=== PATIENT | female | born 1990 | race Caucasian/White ===

== ENCOUNTER 2016-11-27 22:09 | Emergency (ER) ==
[2016-11-27 22:21] VITALS: BP 118/72
== END 2016-11-27 23:48 | disposition left against medical advice (07) ==
LOC: ER 22:09
DX: Z53.21 Procedure and treatment not carried out due to patient leaving prior to being seen by health care provider (principal)

== ENCOUNTER 2017-02-03 19:28 | Emergency (ER) | payer MEDICAID ==
--- NOTE | 2017-02-03 21:03 | ER Document Report ---
ED Medical Screen (RME) - General Chief Complaint: Vaginal Discharge Stated Complaint: LOWER ABDOMINAL PAIN Time Seen by Provider: 02/03/17 21:00 Mode of Arrival: Ambulatory Information source: Patient Notes: Pt is a 26 year old female who presents to the ER today for left lower abdominal pain with "a lot" of vaginal discharge over the past week. She denies . She denies fever/dysuria. - Related Data Allergies/Adverse Reactions: No Known Allergies Allergy (Unverified 02/03/17 20:20) Past Medical History - General Information source: Patient Last Menstrual Period: 24 January Renal/ Medical History: Denies: Hx Peritoneal Dialysis Review of Systems - Review of Systems Female Genitourinary: See HPI Physical Exam - Vital signs Vitals: Temp Pulse Resp BP Pulse Ox 98.0 F 79 14 103/62 99 02/03/17 20:21 02/03/17 20:21 02/03/17 20:21 02/03/17 20:21 02/03/17 20:21 - Notes Notes: PHYSICAL EXAMINATION: GENERAL: Appears uncomfortable, but in no acute distress. ABDOMEN: Soft, suprapubic, left lower quadrant tenderness. No guarding, no rebound Course - Vital Signs Vital signs: Temp Pulse Resp BP Pulse Ox 98.0 F 79 14 103/62 99 02/03/17 20:21 02/03/17 20:21 02/03/17 20:21 02/03/17 20:21 02/03/17 20:21
[2017-02-03 21:33] LABS: AMORPHOUS SEDIMENT,URINE TRACE /HPF; APPEARANCE,URINE CLOUDY; BILIRUBIN,URINE NEGATIVE (NEGATIVE); GLUCOSE, URINE NEGATIVE (NEGATIVE); KETONES,URINE NEGATIVE (NEGATIVE); LEUKOCYTE ESTERASE,URINE TRACE (NEGATIVE); NITRITE,URINE NEGATIVE (NEGATIVE); PROTEIN,URINE NEGATIVE (NEGATIVE); URINE SPECIFIC GRAVITY 1.012; UROBILINOGEN,URINE NEGATIVE mg/dL (<2.0)
--- NOTE | 2017-02-03 22:21 | ER Document Report ---
ED General - General Chief Complaint: Vaginal Discharge Stated Complaint: LOWER ABDOMINAL PAIN Time Seen by Provider: 02/03/17 21:00 Mode of Arrival: Ambulatory Notes: Patient is a 26-year-old female who presents with 2-3 days of lower abdominal pain with associated nausea without vomiting. She has not had a recorded fever. Does describe the pain as being localized to the suprapubic region her abdomen and as a dull, constant, throbbing pain. Nothing improves or worsens this pain. Denies history of similar symptoms in the past. She is not seeing a primary care doctor regarding today's concerns. She does note associated vaginal discharge. - HPI Onset/Duration: Gradual - Related Data Allergies/Adverse Reactions: No Known Allergies Allergy (Unverified 02/03/17 20:20) Past Medical History - General Information source: Patient Last Menstrual Period: 24 January - Social History Smoking Status: Never Smoker Frequency of alcohol use: None Drug Abuse: None Lives with: Spouse/Significant other Family History: Reviewed & Not Pertinent Renal/ Medical History: Denies: Hx Peritoneal Dialysis Review of Systems - Review of Systems Notes: Constitutional: Negative for fever. HENT: Negative for sore throat. Eyes: Negative for visual changes. Cardiovascular: Negative for chest pain. Respiratory: Negative for shortness of breath. Gastrointestinal: Positive for abdominal pain, negative for vomiting or diarrhea. Genitourinary: Negative for dysuria. Musculoskeletal: Negative for back pain. Skin: Negative for rash. Neurological: Negative for headaches, weakness or numbness. 10 point ROS negative except as marked above and in HPI. Physical Exam - Vital signs Vitals: Temp Pulse Resp BP Pulse Ox 98.0 F 79 14 103/62 99 02/03/17 20:21 02/03/17 20:21 02/03/17 20:21 02/03/17 20:21 02/03/17 20:21 Interpretation: Normal Notes: PHYSICAL EXAMINATION: GENERAL: Well-appearing, well-nourished and in no acute distress. HEAD: Atraumatic, normocephalic. EYES: Pupils equal round and reactive to light, extraocular movements intact, sclera anicteric, conjunctiva are normal. ENT: nares patent, oropharynx clear without exudates. Moist mucous membranes. NECK: Normal range of motion, supple without lymphadenopathy LUNGS: Breath sounds clear to auscultation bilaterally and equal. No wheezes rales or rhonchi. HEART: Regular rate and rhythm without murmurs ABDOMEN: Soft, nontender, normoactive bowel sounds. No guarding, no rebound. No masses appreciated. : There is a copious purulent discharge from the cervical os. Suprapubic abdominal tenderness on palpation. Positive for cervical motion tenderness. EXTREMITIES: Normal range of motion, no pitting or edema. No cyanosis. NEUROLOGICAL: No focal neurological deficits. Moves all extremities spontaneously and on command. PSYCH: Normal mood, normal affect. SKIN: Warm, Dry, normal turgor, no rashes or lesions noted. Course - Re-evaluation Re-evalutation: 02/03/17 22:20 Patient presents with progressively worsening lower abdominal discomfort with exam findings consistent with pelvic inflammatory disease. Pelvic examination shows suprapubic tenderness without any localized adnexal tenderness. There is copious purulent drainage from the cervical os on speculum exam. Urinalysis does not demonstrate any evidence of . I suspect the white blood cells in the urinalysis are more likely secondary to vaginal discharge as patient has no dysuria or flank tenderness. She has been treated here with a single dose of IM ceftriaxone, and will be started on both doxycycline and metronidazole as an outpatient. I discussed at length with the patient the importance of close outpatient follow-up with [facility] as well as strict return precautions.At this time will discharge with return precautions and follow-up recommendations. Verbal discharge instructions given a the bedside and opportunity for questions given. Medication warnings reviewed. Patient is in agreement with this plan and has verbalized understanding of return precautions and the need for primary care follow-up in the next 24-72 hours. 02/04/17 03:19 Patient's gonorrhea screen is positive. The follow-up nurse will contact her to notify her of this result that she has already been appropriately treated. - Vital Signs Vital signs: Temp Pulse Resp BP Pulse Ox 98.0 F 79 16 120/69 97 02/03/17 20:21 02/03/17 22:42 02/03/17 22:42 02/03/17 22:42 02/03/17 22:42 - Laboratory Laboratory results interpreted by me: 02/03/17 02/03/17 21:10 22:19 Urine Blood SMALL H Ur Leukocyte Esterase TRACE H N.gonorrhoeae DNA (PCR) DETECTED H Discharge - Discharge Clinical Impression: Pelvic inflammatory disease Condition: Good Disposition: HOME, SELF-CARE Instructions: [facility] Additional Instructions: Your are being treated for pelvic inflammatory disease. You are being started on 2 different antibiotics and you need to take these until you finish them. Please return if you have worsening pain, persistent vomiting, spike a fever greater than 101F, or have any other symptoms that are concerning to you. Please follow closely with you primary care physician or your [facility] at your earliest ability. Prescriptions: Doxycycline Hyclate 100 mg PO BID #28 capsule Metronidazole 500 mg PO BID #28 tablet Forms: Return to Work
[2017-02-03] MEDS ORDERED: LIDOCAINE 1% INJ-PF (10 MG/ML) 30 ML SDV INFIL ONE (22:23)
[2017-02-03] MEDS ORDERED: DOXYCYCLINE HYCLATE 100 MG TABLET PO ONE (22:23)
[2017-02-03] MEDS ORDERED: ACETAMINOPHEN 325 MG TABLET PO ONE (22:23)
[2017-02-03] MEDS ORDERED: IBUPROFEN 600 MG TABLET PO ONE (22:23)
[2017-02-03] MEDS ORDERED: METRONIDAZOLE 500 MG TABLET PO ONE (22:23)
[2017-02-03] MEDS ORDERED: CEFTRIAXONE INJ 250 MG VIAL IM ONE (22:23)
[2017-02-03 22:44] VITALS: BP 120/69
[2017-02-03 23:54] LABS: CHLAM PCR NOT DETECTED (NOT DETECT)
== END 2017-02-03 22:42 | disposition home or self-care (01) ==
LOC: ER 19:28
DX: N73.9 Female pelvic inflammatory disease, unspecified (principal); N89.8 Other specified noninflammatory disorders of vagina; R10.30 Lower abdominal pain, unspecified; R11.0 Nausea
CPT/HCPCS: 99283; 96372; 87210; 81025; 81001; 87491; 87591; J3490 ×5; J0696